=== PATIENT | female | born 1955 | race Caucasian/White ===

== ENCOUNTER 2016-04-29 15:04 | Emergency (ER) | payer OTHER ==
[2016-04-29 15:22] VITALS: BMI 31.3
--- NOTE | 2016-04-29 17:13 | EDPRACDOC ---
[id number] Time Seen by Provider: 04/29/16 16:42 Information Source: Patient Mode Of Arrival: Car Home Medications: Home Medications Aspirin/Calcium Carbonate/Mag [Aspirin Buffered 325 mg Tab] 325 mg PO DAILY Lisinopril 40 mg PO DAILY 04/29/16 Triamterene/Hydrochlorothiazid [Triamterene-Hctz 37.5-25 mg Tb] 1 tab PO DAILY 04/29/16 Allergies/Adverse Reactions: Allergies Allergy/AdvReac Type Severity Reaction Status Date / Time cef[place]lor [From [facility] [place] Allergy Hives* Verified 04/29/16 17:09 UNK SINUS MEDICATION Allergy See Uncoded 04/29/16 17:09 Comments - History of Present Illness Onset: 04/14 HPI: PT SLIPPED ON SOME ICE ON 04/14 AND HIT THE BACK OF HER HEAD. SHE SAID THAT SHE HAS HAD A H/A SINCE THEN. SHE SAID THAT SHE DEVELOPED INTERMITTENT TROUBLE SPEAKING FOR 3 DAYS. SHE SAID THE WORDS WILL COME OUT NOT SHE INTENDED AND SHE IS UNABLE TO FIND THE RIGHT WORDS AT TIMES. PT HAS A HX OF A SAH AND HAS HAD MULTIPLE COILS DONE AT [facility]. Location: Reports: Generalized Pain Quality: Reports: Mild Prior work up: Reports: CT ED Past Medical History - Patient Medical History Neurological History: Reports: Other Cardiac History: Reports: Hypertension Surgical History: Reports: Other (SAH COILS). Denies: Hysterectomy - Social Medical History Smoking Status: Never smoker ETOH: None Substance Abuse: None Lives With: Spouse Lives In: Home EDM Review of Systems - Review of Systems ROS Negative Except as Marked: Yes All systems reviewed and were negative except as marked Neurological: Headache - Physical Exam Constitutional: Alert (Awake), No apparent distress Oriented to: Time, Person, Place Last recorded Vital Signs: Last Vital Signs Temp 98.3 F 04/29/16 15:18 Pulse 91 04/29/16 16:46 Resp 18 04/29/16 16:46 BP 154/82 04/29/16 16:46 Pulse Ox 97 04/29/16 16:46 Oxygen Pulse Oxygen Saturation 97 O2 Device Room Air Oxygen Flow Rate Fraction of Inspired Oxygen ( FIO2) - HEENT Head: Normal ( normocephalic) Eye Exam: Normal (PERRL, EOMI, Sclera white) Oropharynx: Normal (Pharynx:Moist without exudate,Gums-no swelling) ENT EAC: Normal TMJ: Normal Nose: No Symptoms Reported (septum midline) Neck: Normal (FROM, trachea at midline) - Respiratory/Cardiovascular Respiratory: Normal - CTA (BBS clear to auscultation without adventitious sounds ) Cardiovascular: Normal (RRR without murmur, gallop or rub) - GI Auscultation: Normal (NABS) Palpation: Normal (Soft,No rebound or guarding, non distended) Tenderness: Non tender Wyman's Sign: Negative - Musculoskeletal Back: Normal (Non-Tender) Extremities: Normal (Normal tone, Pulses 2+ No cyanosis or edema, FROM) - Integumentary Skin: Normal, Warm, Dry Lymphatics: Normal (no adenopathy) - Neurologic Memory Impaired: Normal Motor Function: Normal (Normal tone, Pulses 2+ No cyanosis or edema, FROM) Cranial Nerve: Normal (CN II-X11 intact sensation, strength 5/5) Cerebellar: Normal Mood Description: Normal Thought: Coherent Perception: Normal Neurologic Comment: [facility] - Diagnostic Imaging Head Image interpreted by: Radiologist 1.2 cm left frontoparietal subdural hematoma (likely subacute) with 1 cm left to right midline shift. Intracranial aneurysm coils, stents and ventriculostomy catheter as described. - Additional Information PT D/W DR. REY (ED ATTENDING AT [facility]). HE ACCEPTED PT FOR TRANSFER. - Departure Yes I personally saw and evaluated the patient. Disposition: Trans. to Other Hospital Condition: Serious Final Diagnosis: LEFT SDH WITH SHIFT, Subdural hematoma Education/Counseling Given To: Patient, Family Member Education/Counseling Given Regarding: Diagnosis, Treatment, Follow Up Referrals: None,No Provider [Primary Care Provider] - One Week Decision to Transfer Time: 17:28
--- NOTE | 2016-04-29 17:24 | DIRPT ---
CLINICAL DATA: 60-year-old female with acute headache since fall and head injury on 04/14/2016. History of intracranial aneurysm with stents and coiling and ventriculostomy in 2009. EXAM: CT HEAD WITHOUT CONTRAST TECHNIQUE: Contiguous axial images were obtained from the base of the skull through the vertex without intravenous contrast. COMPARISON: 05/29/2009 FINDINGS: A hypodense left frontoparietal subdural collection measures 1.2 cm in greatest diameter and compatible with a subacute subdural hematoma. 1 cm left to right midline shift is noted with fullness of the left ventricular frontal horn. A right posterior parietal ventriculostomy catheter is identified with tip near the midline toward the superior aspect of the lateral ventricles. 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 There is no evidence of acute infarction. No acute bony abnormalities are identified. IMPRESSION: 1.2 cm left frontoparietal subdural hematoma (likely subacute) with 1 cm left to right midline shift. Intracranial aneurysm coils, stents and ventriculostomy catheter as described. Critical Value/emergent results were called by telephone at the time of interpretation on 04/29/2016 at 5:[address] DEIDRE KERNS MD, who verbally acknowledged these results. Electronically Signed By: Horace Fuller M.D. On: 04/29/2016 17:21
[2016-04-29 17:56] VITALS: BP 145/87; PULSE 106; TEMP 98.8
== END 2016-04-29 17:58 | disposition short-term general hospital (02) ==
LOC: ED 15:04
DX: S06.5X0A Traumatic subdural hemorrhage without loss of consciousness, initial encounter (principal); W00.0XXA Fall on same level due to ice and snow, initial encounter; I10 Essential (primary) hypertension; Z79.899 Other long term (current) drug therapy
CPT/HCPCS: 70450; 99283